=== PATIENT | female | born 1990 | race Caucasian/White ===

== ENCOUNTER 2020-07-13 17:58 | Emergency (ER) | payer MEDICAID ==
[~2020-07-13] VITALS: Ht 132.1 cm; Wt 48.0 kg
[~2020-07-13 17:58] MED LIST: BACL-141 GT; DIAZ5SOL3 GT; LEVE100S GT; METO5SOL2 GT; PHEN1POW GT; PHEN20EL5 GT; RANI15SY GT
[2020-07-13] MEDS ORDERED: BACITRACIN 15GM TUBE TOP ONE (20:00)
[2020-07-13 20:50] VITALS: BP 134/86
== END 2020-07-13 20:53 | disposition home or self-care (01) ==
LOC: ER 17:58
DX: R21 Rash and other nonspecific skin eruption (principal); Z79.899 Other long term (current) drug therapy; Z98.890 Other specified postprocedural states
CPT/HCPCS: 93005; 99283

== ENCOUNTER 2020-12-31 15:47 | Emergency (ER) | payer MEDICAID ==
[~2020-12-31] VITALS: Ht 132.1 cm; Wt 47.0 kg
[2020-12-31 20:41] LABS: CHLORIDE 98 mEq/L (98-107)
[2020-12-31 20:42] LABS: CLARITY URINE CLOUDY (CLEAR); COLOR URINE DARK YELLOW (YELLOW); KETONES URINE NEGATIVE (NEGATIVE); LEUKOCYTE ESTERASE URINE 1+ (NEGATIVE); NITRITE URINE POSITIVE (NEGATIVE); OCCULT BLOOD URINE 2+ (NEGATIVE); PH URINE 6.5 (4.5-8.0); PROTEIN URINE 1+ (NEGATIVE); SPECIFIC GRAVITY URINE 1.029 (1.005-1.030)
[2020-12-31 20:43] LABS: PROTHROMBIN TIME 10.5 sec (9.6-11.0)
[2020-12-31 23:05] LABS: BASOPHILS % 0.1 % (0.0-2.0); EOSINOPHILS % 0.9 % (0.0-5.0); HEMATOCRIT. 36.8 % (36.0-48.0); HEMOGLOBIN. 13.2 g/dL (12.0-16.0); MEAN CORPUSCULAR HEMOGLOBIN 33.5 pg (28.0-32.0); MEAN CORPUSCULAR VOLUME 93.2 fL (81.0-99.0); MEAN PLATELET VOLUME 10.7 fl (7.4-10.4); MONOCYTES % 6.4 % (2.0-8.0); NEUTROPHILS % 84.6 % (40.0-76.0); PLATELET 99 x1000/uL (130-400); RED BLOOD CELL COUNT 3.94 mill/uL (4.2-5.4)
[2021-01-01] MEDS ORDERED: PIPERACILLIN/TAZOBACTAM 3.375GM/50ML PREMIX IV ONE (01:00)
[2021-01-01 01:05] VITALS: BP 105/55
[2021-01-01] MEDS ORDERED: PIPERACILLIN/TAZ 3.375G PREMIX 50 ML IV SCH (01:15)
== END 2021-01-01 01:40 | disposition short-term general hospital (02) ==
LOC: ER 15:47
DX: K85.90 Acute pancreatitis without necrosis or infection, unspecified (principal); K80.80 Other cholelithiasis without obstruction; K56.41 Fecal impaction; N39.0 Urinary tract infection, site not specified; G40.909 Epilepsy, unspecified, not intractable, without status epilepticus; G80.9 Cerebral palsy, unspecified; F79 Unspecified intellectual disabilities; Z98.1 Arthrodesis status; Z93.1 Gastrostomy status
CPT/HCPCS: 36415; 71045; 74176; 76705; 80053; 81003; 85025; 93005; 99285

== ENCOUNTER 2022-06-01 12:29 | Emergency (ER) | payer MEDICAID ==
[~2022-06-01] VITALS: Ht 139.7 cm; Wt 45.0 kg
[~2022-06-01 12:29] MED LIST changes: +DIAZ5SOL GT; -DIAZ5SOL3 GT
[2022-06-01 12:40] VITALS: BP 113/67
[2022-06-01] MEDS ORDERED: AMOX50SU15 MT (16:32)
[2022-06-01] MEDS ORDERED: SULF473O4 MT (16:32)
== END 2022-06-01 16:38 | disposition home or self-care (01) ==
LOC: ER 12:29
DX: N76.4 Abscess of vulva (principal); Z87.19 Personal history of other diseases of the digestive system; Z90.49 Acquired absence of other specified parts of digestive tract; Z79.899 Other long term (current) drug therapy
CPT/HCPCS: 99281

== ENCOUNTER 2022-06-30 09:17 | Emergency (ER) | payer MEDICAID ==
[~2022-06-30] VITALS: Ht 129.5 cm; Wt 40.0 kg
[~2022-06-30 09:17] MED LIST changes: +AMOX50SU15 MT; +SULF473O4 MT
[2022-06-30] MEDS ORDERED: LIDOCAINE HCL/PF 1% 10 MG/ML 5ML VIAL INFIL ONE (10:00)
[2022-06-30] MEDS ORDERED: CEPH500T PO (11:02)
[2022-06-30] MEDS ORDERED: SULF1TAB48 PO (11:02)
[2022-06-30 11:11] VITALS: BP 123/87
== END 2022-06-30 12:16 | disposition home or self-care (01) ==
LOC: ER 09:17
DX: N76.4 Abscess of vulva (principal); N76.2 Acute vulvitis; F79 Unspecified intellectual disabilities; G40.909 Epilepsy, unspecified, not intractable, without status epilepticus; M41.9 Scoliosis, unspecified; H54.7 Unspecified visual loss; R47.01 Aphasia
CPT/HCPCS: 10060; 76705; 99284; J3490

== ENCOUNTER 2022-08-15 12:48 | Inpatient (IN) | payer MEDICAID ==
[~2022-08-15] VITALS: Ht 137.2 cm; Wt 48.1 kg
[~2022-08-15 12:48] MED LIST changes: +CEPH500T PO; +SULF1TAB48 PO
[2022-08-15] MEDS ORDERED: CEFTRIAXONE 1 G PREMIX 50 ML IV ONE (16:30)
[2022-08-15] MEDS ORDERED: ACETAMINOPHEN 650MG SUPP PR ONE (16:45)
[2022-08-15] MEDS ORDERED: SODIUM CHLORIDE 0.9% 1,000 ML IV ONE (16:45)
[2022-08-15] MEDS ORDERED: LIDOCAINE HCL 1% 20ML VIAL (Pyxis) INJ INFIL ONE (17:00)
[2022-08-15 17:51] LABS: BASOPHILS % 0.3 % (0.0-2.0); EOSINOPHILS % 0.1 % (0.0-5.0); HEMATOCRIT. 39.5 % (36.0-48.0); HEMOGLOBIN. 13.7 g/dL (12.0-16.0); LYMPHOCYTES % 8.7 % (20.0-50.0); MEAN CORPUSCULAR HEMOGLOBIN 33.1 pg (28.0-32.0); MEAN CORPUSCULAR VOLUME 95.5 fL (81.0-99.0); MEAN PLATELET VOLUME 8.3 fl (7.4-10.4); MONOCYTES % 4.2 % (2.0-8.0); NEUTROPHILS % 86.7 % (40.0-76.0); PLATELET 429 x1000/uL (130-400); RED BLOOD CELL COUNT 4.14 mill/uL (4.2-5.4); RED CELL DISTRIBUTION WIDTH 12.3 % (11.6-14.6)
[2022-08-15] MEDS ORDERED: LIDOCAINE HCL 1% 10 MG/ML 10ML VIAL INJ NR (18:00)
[2022-08-15 18:01] LABS: HCG SCREEN NEGATIVE
[2022-08-15 18:34] LABS: CHLORIDE 97 mEq/L (98-107)
[2022-08-15] MEDS ORDERED: SODIUM CHLORIDE 0.9% 250 ML IV ONE (18:45)
[2022-08-15] MEDS ORDERED: KETOROLAC 15MG/ML VIAL IV ONE (18:45)
[2022-08-15 18:58] LABS: CLARITY URINE TURBID (CLEAR); COLOR URINE YELLOW (YELLOW); KETONES URINE NEGATIVE (NEGATIVE); LEUKOCYTE ESTERASE URINE 1+ (NEGATIVE); NITRITE URINE POSITIVE (NEGATIVE); OCCULT BLOOD URINE TRACE (NEGATIVE); PH URINE 5.5 (4.5-8.0); PROTEIN URINE 1+ (NEGATIVE); SPECIFIC GRAVITY URINE 1.021 (1.005-1.030)
[2022-08-15] MEDS ORDERED: ONDANSETRON HCL 4MG/2ML INJ IV PRN (19:45)
[2022-08-15] MEDS ORDERED: PIPERACILLIN/TAZOBACTAM 3.375 G in DEXTROSE 5% WATER 50 ML IV SCH (19:45)
[2022-08-15] MEDS ORDERED: PIPERACILLIN/TAZ 3.375G PREMIX 50 ML IV NR (20:00)
[2022-08-15] MEDS ORDERED: VANCOMYCIN 1G PREMIX 200 ML IV NR (20:15)
[2022-08-15] MEDS: ENOXAPARIN 40MG/0.4ML SYR SUBCUT SCH (22:32)
[2022-08-15] MEDS ORDERED: PHENOBARBITAL ELIXIR 30 MG/7.5ML UDC GT SCH (23:45)
[2022-08-16] MEDS: LEVETIRACETAM 500MG/5ML CUP GT SCH ×3 (00:57→18:08)
[2022-08-16] MEDS: DEXT 5%/0.45% NACL 1000ML 1,000 ML IV SCH ×3 (00:57→18:08)
[2022-08-16] MEDS ORDERED: VANCOMYCIN 500MG PREMIX 100 ML IV SCH (03:00)
[2022-08-16] MEDS: ACETAMINOPHEN 325MG TABLET PO PRN (05:10)
[2022-08-16 05:50] LABS: HEMATOCRIT. 38.7 % (36.0-48.0); MEAN CORPUSCULAR HEMOGLOBIN 32.6 pg (28.0-32.0); MEAN CORPUSCULAR VOLUME 97.4 fL (81.0-99.0); MEAN PLATELET VOLUME 9.5 fl (7.4-10.4); PLATELET 332 x1000/uL (130-400); RED BLOOD CELL COUNT 3.98 mill/uL (4.2-5.4); RED CELL DISTRIBUTION WIDTH 12.3 % (11.6-14.6)
[2022-08-16 06:04] LABS: CHLORIDE 106 mEq/L (98-107)
[2022-08-16 06:11] LABS: HDL CHOLESTEROL 23 mg/dL (40-59); LDL CHOLESTEROL 47 mg/dL (5-100)
[2022-08-16] MEDS: PIPERACILLIN/TAZOBACTAM 3.375G in DEXT 5% WATER 50ML IV SCH ×3 (06:35→21:00)
[2022-08-16 08:00] VITALS: BP 122/78
[2022-08-16] MEDS ORDERED: DIPHENHYDRAMINE 50MG/ML VIAL IM PRN (09:00)
[2022-08-16 09:03] LABS: PLATELET ESTIMATE NORMAL
[2022-08-16] MEDS: PHENOBARBITAL 30 MG TABLET GT SCH ×2 (11:55→20:48)
[2022-08-16 12:00] VITALS: BP 103/69
[2022-08-16] MEDS ORDERED: PHEN32.46 PO (15:03)
[2022-08-16] MEDS ORDERED: METO5TAB2 PO (15:03)
[2022-08-16] MEDS ORDERED: OMEP20CA14 MT (15:03)
[2022-08-16] MEDS ORDERED: POLY119P2 MT (15:03)
[2022-08-16 16:00] VITALS: BP 108/64
[2022-08-16 17:21] VITALS: BP 108/64
[2022-08-16 20:00] VITALS: BP 131/68
[2022-08-16] MEDS: ENOXAPARIN 40MG/0.4ML SYR SUBCUT SCH (20:48)
[2022-08-17] VITALS: BP 132/73
[2022-08-17] MEDS: DEXT 5%/0.45% NACL 1000ML 1,000 ML IV SCH ×2 (03:28→12:51)
[2022-08-17] MEDS: ACETAMINOPHEN 325MG TABLET PO PRN ×2 (03:28→21:57)
[2022-08-17 04:00] VITALS: BP 149/86
[2022-08-17] MEDS: PIPERACILLIN/TAZOBACTAM 3.375G in DEXT 5% WATER 50ML IV SCH ×3 (05:04→21:57)
[2022-08-17 08:00] VITALS: BP 135/86
[2022-08-17] MEDS ORDERED: INFLUENZA VACCINE 05/PF 0.5 ML SYRINGE IM ONE (08:00)
[2022-08-17] MEDS: LEVETIRACETAM 500MG/5ML CUP GT SCH ×2 (09:16→16:45)
[2022-08-17] MEDS: PHENOBARBITAL 30 MG TABLET GT SCH ×2 (09:16→21:54)
[2022-08-17 12:00] VITALS: BP 127/79
[2022-08-17 12:59] LABS: HEMOGLOBIN. 11.1 g/dL (12.0-16.0); MEAN CORPUSCULAR VOLUME 95.4 fL (81.0-99.0); MEAN PLATELET VOLUME 8.9 fl (7.4-10.4); PLATELET 398 x1000/uL (130-400); RED BLOOD CELL COUNT 3.46 mill/uL (4.2-5.4); RED CELL DISTRIBUTION WIDTH 12.2 % (11.6-14.6)
[2022-08-17 13:08] LABS: CHLORIDE 104 mEq/L (98-107)
[2022-08-17 14:08] LABS: PLATELET ESTIMATE NORMAL
[2022-08-17] MEDS: DAPTOMYCIN 500 MG in SODIUM CHLORIDE 0.9% 50 ML IV SCH (15:55)
[2022-08-17 16:00] VITALS: BP 107/66
[2022-08-17] MEDS ORDERED: POTASSIUM CHLORIDE 20MEQ/PACKET GT NR (19:45)
[2022-08-17 20:00] VITALS: BP 151/67
[2022-08-17] MEDS: ENOXAPARIN 40MG/0.4ML SYR SUBCUT SCH (21:55)
[2022-08-18] VITALS: BP 115/72
[2022-08-18] MEDS ORDERED: ACETAMINOPHEN 650MG/20.3ML UDC GT PRN (01:45)
[2022-08-18 04:00] VITALS: BP 117/61
[2022-08-18] MEDS: PIPERACILLIN/TAZOBACTAM 3.375G in DEXT 5% WATER 50ML IV SCH ×3 (05:31→21:50)
[2022-08-18 08:00] VITALS: BP 139/86
[2022-08-18] MEDS: PHENOBARBITAL 30 MG TABLET GT SCH ×2 (09:26→21:50)
[2022-08-18] MEDS: LEVETIRACETAM 500MG/5ML CUP GT SCH ×2 (09:26→17:33)
[2022-08-18 12:00] VITALS: BP 109/72
[2022-08-18 16:00] VITALS: BP 103/62
[2022-08-18] MEDS: DAPTOMYCIN 500 MG in SODIUM CHLORIDE 0.9% 50 ML IV SCH (16:11)
[2022-08-18 18:15] LABS: BASOPHILS % 0.3 % (0.0-2.0); EOSINOPHILS % 0.8 % (0.0-5.0); HEMOGLOBIN. 11.4 g/dL (12.0-16.0); LYMPHOCYTES % 9.2 % (20.0-50.0); MEAN CORPUSCULAR VOLUME 95.8 fL (81.0-99.0); MEAN PLATELET VOLUME 8.6 fl (7.4-10.4); MONOCYTES % 6.1 % (2.0-8.0); NEUTROPHILS % 83.6 % (40.0-76.0); PLATELET 371 x1000/uL (130-400); RED BLOOD CELL COUNT 3.55 mill/uL (4.2-5.4); RED CELL DISTRIBUTION WIDTH 12.5 % (11.6-14.6)
[2022-08-18 18:54] LABS: CHLORIDE 107 mEq/L (98-107)
[2022-08-18 20:00] VITALS: BP 139/70
[2022-08-18] MEDS: LINEZOLID 600MG TABLET PO SCH (21:50)
[2022-08-18] MEDS: ENOXAPARIN 40MG/0.4ML SYR SUBCUT SCH (21:50)
[2022-08-19] VITALS: BP 90/50
[2022-08-19 04:00] VITALS: BP 122/62
[2022-08-19] MEDS: PIPERACILLIN/TAZOBACTAM 3.375G in DEXT 5% WATER 50ML IV SCH (05:14)
[2022-08-19 06:31] LABS: BASOPHILS % 0.5 % (0.0-2.0); EOSINOPHILS % 1.2 % (0.0-5.0); HEMATOCRIT. 33.6 % (36.0-48.0); HEMOGLOBIN. 11.4 g/dL (12.0-16.0); MEAN CORPUSCULAR HEMOGLOBIN 32.5 pg (28.0-32.0); MEAN CORPUSCULAR VOLUME 95.5 fL (81.0-99.0); MEAN PLATELET VOLUME 9.1 fl (7.4-10.4); MONOCYTES % 5.5 % (2.0-8.0); NEUTROPHILS % 79.8 % (40.0-76.0); PLATELET 387 x1000/uL (130-400); RED BLOOD CELL COUNT 3.51 mill/uL (4.2-5.4); RED CELL DISTRIBUTION WIDTH 12.6 % (11.6-14.6)
[2022-08-19 08:00] VITALS: BP 116/79
[2022-08-19] MEDS: LINEZOLID 600MG TABLET PO SCH (08:51)
[2022-08-19] MEDS: PHENOBARBITAL 30 MG TABLET GT SCH (08:51)
[2022-08-19] MEDS: LEVETIRACETAM 500MG/5ML CUP GT SCH (08:52)
[2022-08-19 10:40] LABS: CHLORIDE 105 mEq/L (98-107)
[2022-08-19] MEDS ORDERED: LINE600T11 MT (11:48)
[2022-08-19 12:00] VITALS: BP 101/69
[2022-08-19 13:06] VITALS: BP 107/25
== END 2022-08-19 15:00 | disposition home or self-care (01) | DRG 720 ==
LOC: ER 12:48 → 7WST 19:25 → EDBEDREQ 19:47 → ENRESERV 08-16 03:42
PROVIDERS: ADMIT Family Medicine; ATTEND Family Medicine
PROC: 0W9K0ZZ Drainage of Upper Back, Open Approach (ICD-10-PCS; principal; 2022-08-15)
DX: A41.9 Sepsis, unspecified organism (principal); L02.212 Cutaneous abscess of back [any part, except buttock and flank]; L03.90 Cellulitis, unspecified; E11.9 Type 2 diabetes mellitus without complications; G40.909 Epilepsy, unspecified, not intractable, without status epilepticus; F79 Unspecified intellectual disabilities; Z20.822 Contact with and (suspected) exposure to COVID-19; R13.10 Dysphagia, unspecified; G80.9 Cerebral palsy, unspecified; N39.0 Urinary tract infection, site not specified; Q90.9 Down syndrome, unspecified; Z90.49 Acquired absence of other specified parts of digestive tract
CPT/HCPCS: 36415; 71045; 74018; 80048; 80053; 80061; 81003; 84145; 84703; 85025; 87426; 87804; 93306; 99285; A6261; C1893; J0696; J0878; J1650; J1885; J2543; J3370; J3490; J7030; J7050; J7060

== ENCOUNTER 2024-08-03 09:21 | Inpatient (IN) | payer MEDICAID ==
[~2024-08-03] VITALS: Ht 132.1 cm; Wt 40.8 kg
[~2024-08-03 09:21] MED LIST changes: -AMOX50SU15 MT; -CEPH500T PO; +LINE600T11 MT; -METO5SOL2 GT; +OMEP20CA14 MT; -PHEN1POW GT; -PHEN20EL5 GT; +PHEN32.46 PO; +POLY119P2 MT; -RANI15SY GT; -SULF1TAB48 PO; -SULF473O4 MT
[2024-08-03] MEDS ORDERED: CLINDAMYCIN 600 MG in DEXTROSE 5% WATER 50 ML IV ONE (10:45)
[2024-08-03] MEDS: SODIUM PHOSPHATE 15 MMOL in DEXT 5% WATER 245 ML IV NR (11:19)
[2024-08-03] MEDS: SODIUM CHLORIDE 0.9% (SEPSIS BOLUS) IV ONE (11:30)
[2024-08-03 11:37] LABS: BASOPHILS % 0.2 % (0.0-2.0); EOSINOPHILS % 0.6 % (0.0-5.0); HEMATOCRIT. 38.5 % (36.0-48.0); HEMOGLOBIN. 12.9 g/dL (12.0-16.0); LYMPHOCYTES % 14.8 % (20.0-50.0); MEAN CORPUSCULAR HEMOGLOBIN 32.4 pg (28.0-32.0); MEAN CORPUSCULAR HGB CONC 33.5 g/dL (31.0-37.0); MEAN CORPUSCULAR VOLUME 96.5 fL (81.0-99.0); MEAN PLATELET VOLUME 8.6 fl (7.4-10.4); MONOCYTES % 7.9 % (2.0-8.0); NEUTROPHILS % 76.5 % (40.0-76.0); PLATELET 336 x1000/uL (130-400); RED BLOOD CELL COUNT 3.99 mill/uL (4.2-5.4); RED CELL DISTRIBUTION WIDTH 11.8 % (11.6-14.6); WHITE BLOOD COUNT 21.7 x1000/uL (4.5-11.0)
[2024-08-03 11:38] LABS: CHLORIDE 101 mEq/L (98-107); POTASSIUM 3.7 mEq/L (3.5-5.1); SODIUM 135 mEq/L (136-145)
[2024-08-03 11:39] LABS: CALCIUM 8.6 mg/dL (8.7-10.4); CARBON DIOXIDE 27 mEq/L (21-32)
[2024-08-03 11:44] LABS: CREATININE 0.4 mg/dL (0.6-1.0); GLUCOSE 133 mg/dL (70-105); UREA NITROGEN BLOOD 6 mg/dL (9-23)
[2024-08-03] MEDS: CLINDAMYCIN 600MG PREMIX 50 ML IV NR (13:23)
[2024-08-03] MEDS ORDERED: ONDANSETRON HCL 4MG/2ML INJ IV PRN (15:00)
[2024-08-03] MEDS ORDERED: CLONIDINE 0.1MG TABLET PO PRN (15:00)
[2024-08-03] MEDS ORDERED: IPRATROPIUM/ALBUTEROL 0.5-3(2.5)MG/3ML NEB HHN PRN (15:00)
[2024-08-03] MEDS ORDERED: GUAIFENESIN 200MG/10ML SUGAR FREE UDC PO PRN (15:00)
[2024-08-03] MEDS ORDERED: ACETAMINOPHEN 325MG TABLET PO PRN (15:00)
[2024-08-03] MEDS ORDERED: LORAZEPAM 0.5MG TABLET PO PRN (15:00)
[2024-08-03] MEDS ORDERED: MAGNESIUM/ALUMINUM HYDROXIDE/SIMETHICONE 30ML UDC PO PRN (15:00)
[2024-08-03] MEDS ORDERED: LORAZEPAM 2MG/ML INJ IV PRN (15:45)
[2024-08-03] MEDS: SODIUM CHLORIDE 0.9% 1,000 ML IV SCH (16:07)
[2024-08-03] MEDS: PANTOPRAZOLE SODIUM 40 MG/VIAL IV SCH (16:07)
[2024-08-03] MEDS: PIPERACILLIN/TAZO 3.375G/50ML 50 ML IV SCH (16:30)
[2024-08-03 18:04] LABS: INR 1.1; PROTHROMBIN TIME 11.8 sec (9.6-11.0)
[2024-08-03 18:10] LABS: PHOSPHORUS 2.3 mg/dL (2.5-4.9)
[2024-08-03 20:13] VITALS: BP 96/51; PULSE 96; RESP 18; TEMP 37.05852; O2SAT 97
[2024-08-03] MEDS: CLINDAMYCIN 900MG PREMIX 50 ML IV SCH (20:27)
[2024-08-03] MEDS ORDERED: LEVETIRACETAM 500MG TABLET PO SCH (21:00)
[2024-08-03] MEDS: LEVETIRACETAM 500MG/5ML CUP PEG SCH (21:41)
[2024-08-03] MEDS: PHENOBARBITAL 30 MG TABLET PEG SCH (21:42)
[2024-08-03] MEDS: BACLOFEN 10MG TABLET PO SCH (21:49)
[2024-08-04] VITALS (7 sets, daily range): BP systolic 94–102; BP diastolic 45–68; PULSE 71–104; RESP 16–18; TEMP 36.16956–36.696; O2SAT 98–100
[2024-08-04] MEDS: PIPERACILLIN/TAZO 3.375G/50ML 50 ML IV SCH (05:42)
[2024-08-04 07:22] LABS: CARBON DIOXIDE 24 mEq/L (21-32); CHLORIDE 108 mEq/L (98-107); HEMATOCRIT. 37.7 % (36.0-48.0); HEMOGLOBIN. 12.7 g/dL (12.0-16.0); MEAN CORPUSCULAR HEMOGLOBIN 32.3 pg (28.0-32.0); MEAN CORPUSCULAR HGB CONC 33.6 g/dL (31.0-37.0); MEAN PLATELET VOLUME 8.8 fl (7.4-10.4); PLATELET 329 x1000/uL (130-400); POTASSIUM 3.3 mEq/L (3.5-5.1); RED BLOOD CELL COUNT 3.92 mill/uL (4.2-5.4); SODIUM 140 mEq/L (136-145); WHITE BLOOD COUNT 13.7 x1000/uL (4.5-11.0)
[2024-08-04 07:23] LABS: CALCIUM 8.1 mg/dL (8.7-10.4)
[2024-08-04 07:27] LABS: CREATININE 0.3 mg/dL (0.6-1.0); GLUCOSE 111 mg/dL (70-105)
[2024-08-04 07:28] LABS: LDL CHOLESTEROL 59 mg/dL (5-100); TRIGLYCERIDE 94 mg/dL (0-150)
[2024-08-04 07:30] LABS: ALANINE AMINOTRANSFERASE 10 IU/L (10-49); ASPARTATE AMINOTRANSFERASE 12 IU/L (<34); BILIRUBIN DIRECT 0.1 mg/dL (<=3.0); BILIRUBIN TOTAL 0.3 mg/dL (0.1-1.0); CHOLESTEROL 103 mg/dL (<200); HDL CHOLESTEROL 23 mg/dL (>65); PHOSPHORUS 3.3 mg/dL (2.5-4.9); PROTEIN TOTAL 6.1 g/dL (6.0-8.3); T4 FREE 1.24 ng/dL (0.89-1.76); THYROID STIMULATING HORMONE 0.94 uIU/mL (0.55-4.78)
[2024-08-04 07:32] LABS: UREA NITROGEN BLOOD < 5 mg/dL (9-23)
[2024-08-04 07:51] LABS: DIFFERENTIAL COMMENT 1
[2024-08-04 09:08] LABS: CREATINE KINASE MB FRACTION 0.6 ng/mL (0.5-3.6)
[2024-08-04 09:13] LABS: CREATINE KINASE 45 IU/L (34-145)
[2024-08-04 09:21] LABS: TROPONIN I HIGH SENSITIVITY < 4 ng/L (3.0-34)
[2024-08-04] MEDS: PHENOBARBITAL ELIXIR 30 MG/7.5ML UDC PEG SCH (11:40)
[2024-08-04] MEDS: ACETAMINOPHEN 325MG TABLET PO PRN (11:45)
[2024-08-04] MEDS: POTASSIUM CHLORIDE 20MEQ/PACKET PEG NR (17:37)
[2024-08-04 17:43] LABS: PLATELET ESTIMATE NORMAL
[2024-08-05] VITALS: BP 97/47; PULSE 83; RESP 16; TEMP 36.22512; O2SAT 98
[2024-08-05 04:00] VITALS: BP 96/52; PULSE 87; RESP 16; TEMP 36.16956; O2SAT 97
[2024-08-05 08:00] VITALS: BP 115/71; PULSE 89; RESP 20; TEMP 37.55856; O2SAT 100
[2024-08-05 12:00] VITALS: BP 100/59; PULSE 100; RESP 17; TEMP 35.2806; O2SAT 99
[2024-08-05] MEDS: DOCUSATE SODIUM 100MG CAPSULE PO PRN (14:33)
[2024-08-05 16:00] VITALS: BP 99/56; PULSE 80; RESP 17; TEMP 36.3918; O2SAT 99
[2024-08-05 18:29] LABS: BASOPHILS % 0.2 % (0.0-2.0); EOSINOPHILS % 7.9 % (0.0-5.0); HEMATOCRIT. 37.6 % (36.0-48.0); LYMPHOCYTES % 16.5 % (20.0-50.0); MEAN CORPUSCULAR HEMOGLOBIN 33.1 pg (28.0-32.0); MEAN CORPUSCULAR HGB CONC 34.6 g/dL (31.0-37.0); MEAN CORPUSCULAR VOLUME 95.7 fL (81.0-99.0); MEAN PLATELET VOLUME 8.7 fl (7.4-10.4); MONOCYTES % 5.9 % (2.0-8.0); NEUTROPHILS % 69.5 % (40.0-76.0); PLATELET 368 x1000/uL (130-400); RED BLOOD CELL COUNT 3.93 mill/uL (4.2-5.4); RED CELL DISTRIBUTION WIDTH 11.8 % (11.6-14.6); WHITE BLOOD COUNT 9.3 x1000/uL (4.5-11.0)
[2024-08-05 18:32] LABS: CARBON DIOXIDE 26 mEq/L (21-32); CHLORIDE 107 mEq/L (98-107); POTASSIUM 3.7 mEq/L (3.5-5.1); SODIUM 140 mEq/L (136-145)
[2024-08-05 18:33] LABS: CALCIUM 8.1 mg/dL (8.7-10.4)
[2024-08-05 18:37] LABS: CREATININE 0.3 mg/dL (0.6-1.0)
[2024-08-05 18:38] LABS: GLUCOSE 112 mg/dL (70-105); UREA NITROGEN BLOOD < 5 mg/dL (9-23)
[2024-08-05 20:00] VITALS: BP 109/73; PULSE 80; RESP 18; TEMP 36.22512; O2SAT 98
[2024-08-05] MEDS: MUPIROCIN 2% OINT 22GM TOP SCH (21:31)
[2024-08-06] VITALS: BP 104/68; PULSE 74; RESP 17; TEMP 36.33624; O2SAT 99
[2024-08-06 04:00] VITALS: BP 102/60; PULSE 59; RESP 18; TEMP 36.22512; O2SAT 98
[2024-08-06 08:00] VITALS: BP 103/70; PULSE 100; RESP 17; TEMP 36.3918; O2SAT 100
[2024-08-06 12:00] VITALS: BP 101/62; PULSE 97; RESP 17; TEMP 36.55848; O2SAT 100
[2024-08-06 16:00] VITALS: BP 95/62; PULSE 97; RESP 17; TEMP 36.50292; O2SAT 98
[2024-08-06 18:36] LABS: BASOPHILS % 0.5 % (0.0-2.0); EOSINOPHILS % 9.6 % (0.0-5.0); HEMATOCRIT. 36.2 % (36.0-48.0); HEMOGLOBIN. 12.6 g/dL (12.0-16.0); LYMPHOCYTES % 15.9 % (20.0-50.0); MEAN CORPUSCULAR HEMOGLOBIN 33.1 pg (28.0-32.0); MEAN CORPUSCULAR HGB CONC 34.8 g/dL (31.0-37.0); MEAN CORPUSCULAR VOLUME 95.1 fL (81.0-99.0); MEAN PLATELET VOLUME 8.8 fl (7.4-10.4); MONOCYTES % 6.5 % (2.0-8.0); NEUTROPHILS % 67.5 % (40.0-76.0); PLATELET 377 x1000/uL (130-400); RED BLOOD CELL COUNT 3.81 mill/uL (4.2-5.4); RED CELL DISTRIBUTION WIDTH 11.8 % (11.6-14.6); WHITE BLOOD COUNT 9.1 x1000/uL (4.5-11.0)
[2024-08-06 18:47] LABS: CHLORIDE 106 mEq/L (98-107); POTASSIUM 3.6 mEq/L (3.5-5.1); SODIUM 140 mEq/L (136-145)
[2024-08-06 18:48] LABS: CALCIUM 8.3 mg/dL (8.7-10.4); CARBON DIOXIDE 26 mEq/L (21-32)
[2024-08-06 18:53] LABS: CREATININE 0.3 mg/dL (0.6-1.0); GLUCOSE 110 mg/dL (70-105)
[2024-08-06 18:55] LABS: PREALBUMIN 5.5 mg/dl (10.0-40.0)
[2024-08-06 18:57] LABS: UREA NITROGEN BLOOD < 5 mg/dL (9-23)
[2024-08-06 20:00] VITALS: BP 131/63; PULSE 100; RESP 18; TEMP 36.9474; O2SAT 100
[2024-08-07] VITALS: BP 130/60; PULSE 98; RESP 18; TEMP 37.11408; O2SAT 96
[2024-08-07 04:00] VITALS: BP 100/60; PULSE 82; RESP 19; TEMP 36.50292; O2SAT 96
[2024-08-07 08:00] VITALS: BP 114/63; PULSE 85; RESP 20; TEMP 37.00296; O2SAT 94
[2024-08-07 12:00] VITALS: BP 100/56; PULSE 71; RESP 20; TEMP 36.114; O2SAT 93
[2024-08-07 16:00] VITALS: BP 96/59; PULSE 81; RESP 20; TEMP 36.6696; TEMP 36.66960; O2SAT 93
[2024-08-07 16:14] VITALS: BP 96/59; PULSE 81; TEMP 98; O2SAT 93
[2024-08-07] MEDS ORDERED: SULF1TAB48 MT (17:13)
[2024-08-07] MEDS ORDERED: LEVETIRACETAM 500MG/5ML CUP GT SCH (21:00)
[2024-08-07] MEDS ORDERED: PHENOBARBITAL 30 MG TABLET PO SCH (21:00)
[2024-08-07] MEDS ORDERED: DIAZEPAM GT PRN (21:00)
[2024-08-07] MEDS ORDERED: LINEZOLID 600MG TABLET GT SCH (21:00)
[2024-08-08] MEDS ORDERED: ENOXAPARIN 30MG/0.3ML SYR SUBCUT SCH (09:00)
[2024-08-08] MEDS ORDERED: BACLOFEN 10MG TABLET GT SCH (09:00)
[2024-08-08] MEDS ORDERED: FAMOTIDINE 20MG/2ML VIAL IV SCH (09:00)
[2024-08-08] MEDS ORDERED: MEDICATION NOT ON FORMULARY EA (Omeprazole 1 CAP) MT SCH (09:00)
[2024-08-09] MEDS ORDERED: POLYETHYLENE GLYCOL 17 GM MT SCH (09:00)
== END 2024-08-07 18:05 | disposition home health service (06) | DRG 720 ==
LOC: ER 09:21 → 5WST 13:41 → EDBEDREQTM 13:49 → EDBEDREQ 13:49 → 8WST 08-04 09:44
PROVIDERS: ADMIT Hospitalist; ATTEND Hospitalist
DX: A41.9 Sepsis, unspecified organism (principal); L89.153 Pressure ulcer of sacral region, stage 3; E46 Unspecified protein-calorie malnutrition; R53.2 Functional quadriplegia; E87.1 Hypo-osmolality and hyponatremia; L02.211 Cutaneous abscess of abdominal wall; L03.311 Cellulitis of abdominal wall; E83.51 Hypocalcemia; G40.909 Epilepsy, unspecified, not intractable, without status epilepticus; G80.8 Other cerebral palsy; R13.10 Dysphagia, unspecified; K80.20 Calculus of gallbladder without cholecystitis without obstruction; M41.9 Scoliosis, unspecified; Z68.23 Body mass index [BMI] 23.0-23.9, adult; Z74.01 Bed confinement status; Q65.89 Other specified congenital deformities of hip; Z93.1 Gastrostomy status; Z82.0 Family history of epilepsy and other diseases of the nervous system; Z96.649 Presence of unspecified artificial hip joint; Z88.1 Allergy status to other antibiotic agents
CPT/HCPCS: 36415; 71045; 72220; 80048; 80061; 80076; 82040; 82550; 82553; 83605; 83735; 84100; 84134; 84145; 84439; 84443; 84484; 85025; 85651; 87070; 87077; 87186; 93005; 99285; C1893; J2470; J2543; J3490; J7030; J7060

== ENCOUNTER 2024-12-20 10:18 | Emergency (ER) | payer MEDICAID ==
[~2024-12-20] VITALS: Ht 132.1 cm; Wt 47.0 kg
[~2024-12-20 10:18] MED LIST changes: -LINE600T11 MT; +SULF1TAB48 MT
[2024-12-20 10:26] VITALS: BP 133/86; RESP 18; TEMP 36.9; O2SAT 99
[2024-12-20] MEDS ORDERED: PHEN32.46 MT (10:54)
[2024-12-20 11:03] VITALS: PULSE 96
== END 2024-12-20 11:35 | disposition home or self-care (01) ==
LOC: ER 10:18
DX: R56.9 Unspecified convulsions (principal); Z76.0 Encounter for issue of repeat prescription; Z90.49 Acquired absence of other specified parts of digestive tract; Z79.899 Other long term (current) drug therapy; Z98.890 Other specified postprocedural states; Z88.1 Allergy status to other antibiotic agents
CPT/HCPCS: 99281